=== PATIENT | female | born 1965 | race Caucasian/White ===

== ENCOUNTER 2018-05-01 12:38 | Emergency (ER) | payer SELFPAY ==
[2018-05-01 12:59] VITALS: BP 160/80; TEMP 98.2
[2018-05-01 14:00] VITALS: PULSE 122; RESP 22; O2SAT 100
[2018-05-01 14:56] VITALS: BMI 26.6
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
== END 2018-05-01 14:45 | disposition home or self-care (01) ==
LOC: EDBD 12:38 → MERGE 12:38 → H.ER 12:38
DX: F41.9 Anxiety disorder, unspecified (principal); M79.7 Fibromyalgia
CPT/HCPCS: 96372; 99282; J2060